=== PATIENT | female | born 1965 | race Caucasian/White ===

== ENCOUNTER 2020-06-19 12:32 | Emergency (ER) | payer OTHER ==
[~2020-06-19] VITALS: Ht 157.5 cm; Wt 68.0 kg
[~2020-06-19 12:32] MED LIST: HYDROCODONE-AP1 EAC6 PO; LEVAQUIN 750 M750 MG PO; LEXAPRO 10 MG T10 M2 PO; LIORESAL 10 MG10 MG PO; XANAX 0.5 MG0.5 MG PO; ZOFRAN ODT4 MG DISSOLVE; [UNRECOGNIZED DRUG - SUPPLY] PO
[2020-06-19 13:27] LABS: HEMOGLOBIN 14.8 gm/dL (12.0-15.0); MCHC 34.1 g/dL (28.0-37.0); MPV 6.5 fl. (7.2-11.1); NUCLEATED RBCS 0 /100WBC
[2020-06-19 13:29] LABS: ABSOLUTE BASOPHILS 0.1 thou/uL (0.0-0.2); ABSOLUTE EOSINOPHILS 0.1 thou/uL (0.0-0.7); ABSOLUTE LYMPHOCYTES 1.4 thou/uL (0.8-5.3); ABSOLUTE MONOCYTES 0.4 thou/uL (0.0-1.2); ABSOLUTE NEUTROPHILS 5.8 thou/uL (1.6-8.1); BASOPHILS 0.9 %; HEMATOCRIT 43.4 % (37.0-47.0); LYMPHOCYTES 18.3 %; MCV 96.8 fL (80.0-100.0); PLATELET COUNT* 253 thou/uL (150-400); POLYS 74.8 %; RBC 4.48 mil/uL (4.20-5.00); RDW-CV 14.3 % (10.5-14.5); WBC 7.7 thou/uL (4.0-11.0)
[2020-06-19 13:38] LABS: URINE BILIRUBIN NEGATIVE (Negative); URINE BLOOD NEGATIVE (Negative); URINE CLARITY CLEAR; URINE COLOR YELLOW; URINE GLUCOSE-RANDOM NEGATIVE (Negative); URINE KETONES NEGATIVE (Negative); URINE LEUKOCYTES-REFLEX NEGATIVE (Negative); URINE NITRITE-REFLEX NEGATIVE (Negative); URINE PROTEIN NEGATIVE (Negative); URINE SPECIFIC GRAVITY <= 1.005 (1.005-1.030); URINE UROBILINOGEN 0.2 E.U./dl (0.2-1.0)
[2020-06-19 13:38] LABS: CALCIUM 9.5 mg/dL (8.5-10.1); CREATININE 0.7 mg/dL (0.6-1.3); POTASSIUM 3.8 mmol/L (3.5-5.1)
[2020-06-19 13:42] LABS: ALBUMIN 4.4 g/dL (3.4-5.0); TOTAL BILIRUBIN 0.5 mg/dL (<0.1-1.0); TOTAL PROTEIN 7.1 g/dL (6.4-8.2)
[2020-06-19 13:48] LABS: INFLUENZA A ANTIGEN Negative (Negative); INFLUENZA B ANTIGEN Negative (Negative)
[2020-06-19] MEDS ORDERED: NORCO5 PO (15:27)
[2020-06-19] MEDS ORDERED: ZANAFLEX4 MG PO (15:27)
[2020-06-19] MEDS ORDERED: ZOFRAN ODT4 MG PO (15:27)
[2020-06-19] MEDS ORDERED: MEDROLDOSEPACK PO (15:27)
[2020-06-19 16:01] VITALS: BP 176/71
--- NOTE | 2020-06-19 18:36 | EKG ---
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1965 Requested By: Janet Sr Order Number: [id number] MD: Chicho Mejia Measurements Intervals [place] Rate: 74 P: 61 [place]: 145 QRS: 40 QRSD: 87 T: 32 QT: 391 QTc: 434 Interpretive Statements Sinus rhythm Probable left atrial enlargement Compared to ECG 04/30/2016 10:57:39 Myocardial infarct finding no longer present Electronically Signed On 06-19-2020 18:36:37 [employer] by Chicho Mejia [email or web address] <ELECTRONICALLY SIGNED> By: Chicho Mejia MD, [facility] 06/19/20 1836 1332 1332 Chicho Mejia MD, [facility] /EPI
== END 2020-06-19 16:03 | disposition home or self-care (01) ==
LOC: M.ERS 12:32
PROVIDERS: Nurse Practitioner Family
DX: B34.9 Viral infection, unspecified (principal); M54.31 Sciatica, right side; Z20.822 Contact with and (suspected) exposure to COVID-19; Z90.710 Acquired absence of both cervix and uterus

== ENCOUNTER 2020-12-17 14:36 | Emergency (ER) | payer OTHER ==
[~2020-12-17] VITALS: Ht 157.5 cm; Wt 68.0 kg
[~2020-12-17 14:36] MED LIST changes: +MEDROLDOSEPACK PO; +NORCO5 PO; +ZANAFLEX4 MG PO; +ZOFRAN ODT4 MG PO
[2020-12-17] MEDS ORDERED: PRISTIQ50 M1 PO (15:04)
[2020-12-17] MEDS ORDERED: OMEPRAZOLE20 M2 PO (15:04)
[2020-12-17 16:28] LABS: ABSOLUTE BASOPHILS 0.1 thou/uL (0.0-0.2); ABSOLUTE EOSINOPHILS 0.1 thou/uL (0.0-0.7); ABSOLUTE LYMPHOCYTES 1.9 thou/uL (0.8-5.3); ABSOLUTE MONOCYTES 0.3 thou/uL (0.0-1.2); ABSOLUTE NEUTROPHILS 3.7 thou/uL (1.6-8.1); BASOPHILS 2.2 %; EOSINOPHILS 2.3 %; HEMATOCRIT 48.1 % (37.0-47.0); HEMOGLOBIN 16.4 gm/dL (12.0-15.0); LYMPHOCYTES 30.1 %; MCH 34.4 pg (26.0-34.0); MCHC 34.1 g/dL (28.0-37.0); MCV 100.9 fL (80.0-100.0); MONOCYTES 5.6 %; MPV 6.5 fl. (7.2-11.1); NUCLEATED RBCS 0 /100WBC; PLATELET COUNT* 266 thou/uL (150-400); POLYS 59.8 %; RBC 4.76 mil/uL (4.20-5.00); RDW-CV 15.8 % (10.5-14.5); WBC 6.2 thou/uL (4.0-11.0)
[2020-12-17 16:39] LABS: CALCIUM 9.5 mg/dL (8.5-10.1); CREATININE 0.9 mg/dL (0.6-1.3); POTASSIUM 3.5 mmol/L (3.5-5.1)
[2020-12-17 16:44] LABS: ALBUMIN 4.9 g/dL (3.4-5.0); TOTAL BILIRUBIN 0.9 mg/dL (<0.1-1.0)
[2020-12-17 16:54] VITALS: BP 180/99
--- NOTE | 2020-12-18 10:06 | EKG ---
[place] [address] ELECTROCARDIOGRAM REPORT Name: BARBRA MARCANO Room: [facility]#: [id number] Admission: 12/17/20 Attend Phys: Discharge: 12/17/20 Date of : 65 Date of Service: 12/17/20 1620 Report #: [id number] THIS REPORT FOR: //name// [facility] ED Test Date: 2020-12-17 Test Time: 16:20:34 Pat Name: BARBRA MARCANO Department: Room: Gender: F Medical Officer Psychiatry: : 1965 Requested By: Jaret Welch Order Number: [id number] MD: Graham Dominique Measurements Intervals [place] Rate: 108 P: 62 [place]: 154 QRS: 25 QRSD: 82 T: 37 QT: 320 QTc: 429 Interpretive Statements Sinus tachycardia Probable left atrial enlargement Consider anterior infarct Compared to ECG 06/19/2020 13:32:27 Sinus rhythm no longer present Electronically Signed On 12-18-2020 10:05:50 CDT by Graham Dominique [email or web address] <ELECTRONICALLY SIGNED> By: Graham Dominique MD, [facility] 12/18/20 1005 1620 1620 Graham Dominique MD, [facility] /EPI
== END 2020-12-17 16:56 | disposition home or self-care (01) ==
LOC: M.ERS 14:36
PROVIDERS: Family Medicine
DX: I10 Essential (primary) hypertension (principal); F17.210 Nicotine dependence, cigarettes, uncomplicated; Z90.710 Acquired absence of both cervix and uterus; Z79.899 Other long term (current) drug therapy